=== PATIENT | female | born 1950 | race Caucasian/White ===

== ENCOUNTER 2018-03-25 17:32 | Emergency (ER) | payer OTHER, MEDICARE, BC ==
[~2018-03-25] VITALS: Ht 165.1 cm; Wt 83.5 kg
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
[2018-03-25] MEDS ORDERED: ONDANSETRON PF 4 MG/2 ML VIAL. IV ONE (18:15)
[2018-03-25] MEDS ORDERED: fentaNYL PF VIAL 100 MCG/2 ML VIAL IV ONE (18:15)
[2018-03-25] MEDS ORDERED: DIPHTH,PERTUSS(ACELL),TET TOX 0.5 ML DISP.SYRIN. VAX IM ONE (18:15)
[2018-03-25] MEDS ORDERED: IOHEXOL 300 MG/ML 100ML VIAL. IV ONE (18:45)
[2018-03-25] MEDS ORDERED: CONTRAST GIVEN. MC PRN (18:45)
[2018-03-25 18:55] LABS: BASO # 0.1 x10^3/uL (0.0-0.2); BASO % 1 % (0-3); EOS # 0.2 x10^3/uL (0.0-0.7); EOS % 1 % (0-3); HEMATOCRIT 39.6 % (36.0-47.0); HEMOGLOBIN 13.6 g/dL (12.0-15.5); LYMPH # 1.2 x10^3/uL (1.0-4.8); LYMPH % 11 % (24-48); MEAN CORPUSCULAR HEMOGLOBIN 31 pg (25-35); MEAN CORPUSCULAR HGB CONC 34 g/dL (31-37); MEAN CORPUSCULAR VOLUME 90 fL (79-100); MONO # 0.5 x10^3/uL (0.0-1.1); MONO % 5 % (0-9); NEUT # 9.3 x10^3uL (1.8-7.7); NEUT % 83 % (31-73); PLATELET COUNT 236 x10^3/uL (140-400); WHITE BLOOD COUNT 11.2 x10^3/uL (4.0-11.0)
[2018-03-25 19:20] LABS: HEMOGLOBIN ISTAT 13.6 g/dL (12-15); ION CA ISTAT 1.16 mmol/L (1.13-1.32); POTASSIUM ISTAT 4.2 mmol/L (3.5-5.0)
--- NOTE | 2018-03-25 20:44 | EKG ---
[facility] [address] [place] [address] Test Date: 2018-03-25 Test Time: 18:54:52 Pat Name: MELODY CHAPMAN Department: Room: Gender: F Sample Hand: : 1950 Requested By: KEN BRAN Order Number: [id number] Reading MD: Wilber Shah Measurements Intervals [place] Rate: 65 P: 36 AR: 184 QRS: 4 QRSD: 76 T: 14 QT: 418 QTc: 435 Interpretive Statements SINUS RHYTHM Electronically Signed On 03-26-2018 11:15:06 CDT by Wilber Shah
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
[2018-03-25 21:46] VITALS: BP 164/75
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
== END 2018-03-25 22:02 | disposition home or self-care (01) ==
LOC: ER 17:32
DX: S16.1XXA Strain of muscle, fascia and tendon at neck level, initial encounter (principal); S70.02XA Contusion of left hip, initial encounter; S40.012A Contusion of left shoulder, initial encounter; S80.11XA Contusion of right lower leg, initial encounter; S20.212A Contusion of left front wall of thorax, initial encounter; R51 Headache; E03.9 Hypothyroidism, unspecified; Z90.710 Acquired absence of both cervix and uterus; Z88.1 Allergy status to other antibiotic agents; Z88.5 Allergy status to narcotic agent; Z88.8 Allergy status to other drugs, medicaments and biological substances; V43.62XA Car passenger injured in collision with other type car in traffic accident, initial encounter; Y93.89 Activity, other specified; Y92.488 Other paved roadways as the place of occurrence of the external cause; Y99.8 Other external cause status
CPT/HCPCS: 36415; 70450; 71045; 71260; 72125; 73020; 73590; 74177; 80047; 85025; 90471; 90715; 93005; 96374; 96375; 99285; J2405; J3010; Q9967